=== PATIENT | female | born 1980 | race Caucasian/White ===

== ENCOUNTER 2019-05-09 14:45 | Emergency (ER) | payer OTHER ==
[2019-05-09 15:01] VITALS: BP 140/87; PULSE 102; TEMP 99; BMI 25.6
[2019-05-09] MEDS ORDERED: KETOROLAC TROMETHAMINE 30 MG/1 ML VIAL IM ONE (15:34)
[2019-05-09] MEDS ORDERED: KETOROLAC TROMETHAMINE 30 MG/1 ML VIAL ONE (15:40)
--- NOTE | 2019-05-09 15:41 | PDOC ---
History of Present Illness - General Chief Complaint: Back Pain Stated Complaint: PAIN Time Seen by Provider: 05/09/19 15:20 History Source: Patient Exam Limitations: No Limitations - History of Present Illness Initial Comments: 05/09/19 15:44 CHIEF COMPLAINT: Lower back pain HISTORY OF PRESENT ILLNESS:38-year-old woman with past medical history of multiple herniated disc in the lumbar spine who presents emergency department for evaluation of acute exacerbation of her back pain. She reports the pain initiates in the lumbar spine and radiates bilaterally down both legs. She denies any numbness or tingling, incontinence of bladder or bowel, urinary retention, saddle anesthesia, foot drop. Patient denies any history of IV drug use or cancer. States pain is 10/10 and has a sharp, stabbing quality. REVIEW OF SYSTEMS: GENERAL: Afebrile, denies any weakness RESPIRATORY: No cough, wheezing, or hemoptysis. CARDIAC: No chest pain or shortness of breath MUSCULOSKELETAL: Pain to generalized lower back. No point tenderness. SKIN : No erythema, no bruising, no deformity. GI/: Denies any abdominal pain, no urinary difficulty, incontinence or urinary retention. RECTAL: Denies any difficulty this A.m. NEUROLOGICAL: Denies any numbness or tingling. No neurosensory deficits. PHYSICAL EXAM: GENERAL: The patient is awake, alert, and fully oriented, in no acute distress. RESPIRATORY: Lungs clear bilaterally, no rhonchi wheezes or crackles CARDIAC: S1-S2 audible, no murmur rub or gallop MUSCULOSKELETAL: Pain to generalized lower back, nonradiating, no tingling or sensory deficit. Less than 2 second cap refill, +2 pedal pulses. No spinal point tenderness. Normal reflexive and no deficits to sensation or strength. GI/: Abdomen soft, nontender, nondistended. No rebound tenderness. No masses palpable. RECTAL: Deferred patient with no neurological findings SKIN: Warm, Dry, normal turgor, no erythema, no edema no bruising. Past History - Past Medical History Allergies/Adverse Reactions: Allergies Allergy/AdvReac Type Severity Reaction Status Date / Time No Known Allergies Allergy Verified 05/09/19 15:01 Home Medications: Ambulatory Orders Lidocaine 5% Patch [Lidoderm Patch -] 1 patch TP DAILY #7 patch 05/09/19 traMADol HCL [Ultram -] 50 mg PO Q6H PRN #10 tablet MDD 4 05/09/19 COPD: No Other medical history: 4 buldging disc to lower back - Psycho Social/Smoking Cessation Hx Smoking History: Never smoked *Physical Exam - Vital Signs Last Vital Signs Temp Pulse Resp BP Pulse Ox 99.0 F 102 H 18 140/87 99 05/09/19 14:57 05/09/19 14:57 05/09/19 14:57 05/09/19 14:57 05/09/19 14:57 Medical Decision Making - Medical Decision Making 05/09/19 15:43 A/P: 38-year-old woman with acute exacerbation of chronic back pain No palpable muscle spasms present. Patient reports having multiple herniated disks on MRI and is currently awaiting insurance approval for further evaluation by spinal surgeon Toradol 30 mg IM now Discharge home with prescription for Lidoderm and tramadol. I discussed the physical exam findings, ancillary test results and final diagnoses with the patient. I answered all of the patient's questions. The patient was satisfied with the care received and felt comfortable with the discharge plan and treatment plan. The patient will call their primary care physician within 24 hours to arrange follow-up and will return to the Emergency Department with any new, persistent or worsening symptoms. Discharge - Discharge Information Problems reviewed: Yes Clinical Impression/Diagnosis: Acute exacerbation of chronic low back pain Condition: Stable Disposition: HOME - Admission No - Additional Discharge Information Prescriptions: Lidocaine 5% Patch [Lidoderm Patch -] 1 patch TP DAILY #7 patch traMADol HCL [Ultram -] 50 mg PO Q6H PRN #10 tablet MDD 4 PRN Reason: Back Pain - Follow up/Referral Referrals: Linwood Mena [Primary Care Provider] - - Patient Discharge Instructions Additional Instructions: Rest. Take Tylenol or Motrin as needed for pain. Follow manufacturers instructions for appropriate dosage. Tramadol 50 mg every 6 hours as needed if Tylenol and Motrin are not helping. Warm moist heat applied to your back may help alleviate pain. Schedule appointment with your spinal surgeon for continued evaluation and potential definitive treatment. Return to emergency department for discoloration of the foot, numbness or tingling to the foot, worsening pain, or any other concerns. Thank you very much for choosing us to provide your emergent healthcare needs. - Post Discharge Activity
== END 2019-05-09 16:08 | disposition home or self-care (01) ==
LOC: JERFT 14:45 → JER 14:45 → JERFT 16:08
PROC: 3E0233Z Introduction of Anti-inflammatory into Muscle, Percutaneous Approach (ICD-10-PCS; principal; 2019-05-09)
DX: M54.5 Low back pain (principal)
CPT/HCPCS: 96372; 99281-25

== ENCOUNTER 2020-11-24 20:20 | Emergency (ER) | payer OTHER ==
[2020-11-24 20:26] VITALS: BP 142/94; PULSE 95; TEMP 98; BMI 25.6
[2020-11-24] MEDS ORDERED: morphine CARPU-JECT 2 MG/1 ML DISP.SYRIN IVPUSH ONE (22:31)
[2020-11-24] MEDS ORDERED: ONDANSETRON 4 MG/2 ML VIAL IVPUSH ONE (22:42)
[2020-11-24] MEDS ORDERED: MORPHINE SULFATE 2 MG/ML VIAL ONE (22:42)
[2020-11-24] MEDS ORDERED: ONDANSETRON 4 MG/2 ML VIAL ONE (22:42)
[2020-11-24 22:50] LABS: BASO % 1.5 % (0-2.0); EOS % 2.5 % (0-4.5); HEMOGLOBIN 10.8 GM/dL (10.7-15.3); LYMPH % 43.5 % (8-40); MCH 28.9 pg (25.7-33.7); MCHC 33.7 g/dl (32.0-36.0); MEAN CELL VOLUME 85.7 fl (80-96); MEAN PLT VOLUME 8.6 fl (7.5-11.1); MONO % 9.2 % (3.8-10.2); NEUT % 43.3 % (42.8-82.8); PLATELET COUNT 309 10^3/uL (134-434); RBC 3.73 M/mm3 (3.60-5.2); RDW 13.4 % (11.6-15.6); WHITE BLOOD COUNT 7.2 K/mm3 (4.0-10.0)
[2020-11-24 22:55] LABS: EPI CELLS 16 /uL (0-25.1); HCG,QUALITATIVE URINE Negative; HYALINE CASTS 0 /uL (0-3.1); URINE APPEARANCE CLEAR; URINE BACTERIA 75 /uL (0-1359); URINE BILIRUBIN NEGATIVE (NEGATIVE); URINE COLOR YELLOW; URINE GLUCOSE (UA) NEGATIVE (NEGATIVE); URINE KETONE NEGATIVE (NEGATIVE); URINE LEUK ESTERASE TRACE (NEGATIVE); URINE NITRITE NEGATIVE (NEGATIVE); URINE PROTEIN NEGATIVE (NEGATIVE); URINE RBC 31 /uL (0-23.9); URINE UROBILINOGEN 0.2 mg/dL (0.2-1.0); URINE WBC 39 /uL (0-25.8)
[2020-11-24] MEDS ORDERED: SODIUM CHLORIDE 0.9% 500 ML INFUS.BAG IV ONE (23:17)
[2020-11-24] MEDS ORDERED: KETOROLAC TROMETHAMINE 15 MG/ML VIAL IM ONE (23:17)
[2020-11-24 23:18] LABS: CALCIUM 8.5 mg/dL (8.5-10.1)
[2020-11-24] MEDS ORDERED: KETOROLAC TROMETHAMINE 15 MG/ML VIAL ONE (23:18)
[2020-11-24 23:19] LABS: ALBUMIN 3.6 g/dl (3.4-5.0); BLOOD UREA NITROGEN 11.6 mg/dL (7-18)
[2020-11-24 23:22] LABS: CREATININE 0.9 mg/dL (0.55-1.3)
[2020-11-24 23:23] LABS: BILIRUBIN,TOTAL 0.1 mg/dL (0.2-1)
[2020-11-24 23:24] LABS: TOT PROT 7.5 g/dl (6.4-8.2)
== END 2020-11-25 02:03 | disposition home or self-care (01) ==
LOC: JER 20:20
PROC: 3E0233Z Introduction of Anti-inflammatory into Muscle, Percutaneous Approach (ICD-10-PCS; principal; 2020-11-24)
PROC: 3E033NZ Introduction of Analgesics, Hypnotics, Sedatives into Peripheral Vein, Percutaneous Approach (ICD-10-PCS; 2020-11-24)
PROC: 3E033GC Introduction of Other Therapeutic Substance into Peripheral Vein, Percutaneous Approach (ICD-10-PCS; 2020-11-24)
DX: N20.1 Calculus of ureter (principal)
CPT/HCPCS: 36415; 74176-TC; 80053; 81003; 84703; 85025; 87491; 87591; 99284-25

== ENCOUNTER 2022-01-18 21:18 | Emergency (ER) | payer OTHER ==
[2022-01-18 21:31] VITALS: BP 110/73; PULSE 84; RESP 18; TEMP 97.8; BMI 27.4
[2022-01-18] MEDS ORDERED: LIDOCAINE PATCH REMOVAL MC SCH (22:00)
[2022-01-18] MEDS ORDERED: LIDOCAINE 5% TOPICAL PATCH TP ONE (22:34)
[2022-01-18] MEDS ORDERED: KETOROLAC TROMETHAMINE 30 MG/1 ML VIAL IM ONE (22:34)
[2022-01-18] MEDS ORDERED: METHOCARBAMOL 500 MG TABLET PO ONE (22:34)
[2022-01-18] MEDS ORDERED: oxyCODONE HCL 5 MG TABLET PO ONE (22:37)
[2022-01-18 22:52] LABS: EPI CELLS 23 /uL (0-25.1); HYALINE CASTS 0 /uL (0-3.1); PH,URINE 6.5 (5.0-8.0); URINE APPEARANCE CLEAR; URINE BACTERIA 775 /uL (0-1359); URINE BILIRUBIN NEGATIVE (NEGATIVE); URINE COLOR YELLOW; URINE GLUCOSE (UA) NEGATIVE (NEGATIVE); URINE KETONE NEGATIVE (NEGATIVE); URINE LEUK ESTERASE NEGATIVE (NEGATIVE); URINE NITRITE NEGATIVE (NEGATIVE); URINE PROTEIN NEGATIVE (NEGATIVE); URINE RBC 54 /uL (0-23.9); URINE UROBILINOGEN 0.2 mg/dL (0.2-1.0); URINE WBC 2 /uL (0-25.8)
[2022-01-18] MEDS ORDERED: METHOCARBAMOL 500 MG TABLET ONE (22:59)
[2022-01-18] MEDS ORDERED: oxyCODONE HCL 5 MG TABLET ONE (23:00)
[2022-01-18] MEDS ORDERED: KETOROLAC TROMETHAMINE 30 MG/1 ML VIAL ONE (23:00)
[2022-01-18] MEDS ORDERED: LIDOCAINE 5% TOPICAL PATCH ONE (23:00)
[2022-01-18] MEDS ORDERED: CEPHALEXIN MONOHYDRATE 500 MG CAPSULE (UD) PO ONE (23:01)
[2022-01-18 23:14] LABS: HCG,QUALITATIVE URINE Negative
[2022-01-18] MEDS ORDERED: CEPHALEXIN MONOHYDRATE 500 MG CAPSULE (UD) ONE (23:17)
== END 2022-01-19 01:03 | disposition home or self-care (01) ==
LOC: JER 21:18
PROC: 3E0233Z Introduction of Anti-inflammatory into Muscle, Percutaneous Approach (ICD-10-PCS; principal; 2022-01-18)
DX: M54.50 Low back pain, unspecified (principal)
CPT/HCPCS: 72131-TC; 81003; 84703; 87086; 99284-25

== ENCOUNTER 2022-05-23 13:28 | Emergency (ER) | payer OTHER ==
[2022-05-23 13:49] VITALS: BP 131/82; PULSE 75; RESP 20; TEMP 97.8; BMI 25.7
[2022-05-23] MEDS ORDERED: KETOROLAC TROMETHAMINE 30 MG/1 ML VIAL IM ONE (14:26)
[2022-05-23] MEDS ORDERED: KETOROLAC TROMETHAMINE 30 MG/1 ML VIAL ONE (14:30)
== END 2022-05-23 15:04 | disposition home or self-care (01) ==
LOC: JERFT 13:28 → JER 13:28 → JERFT 15:04
PROC: 3E023GC Introduction of Other Therapeutic Substance into Muscle, Percutaneous Approach (ICD-10-PCS; principal; 2022-05-23)
DX: L29.9 Pruritus, unspecified (principal)
CPT/HCPCS: 99284-25

== ENCOUNTER 2024-01-29 13:31 | Emergency (ER) | payer OTHER ==
[2024-01-29 13:48] VITALS: BP 111/77; PULSE 111; RESP 20; TEMP 102.6; BMI 24.3
[2024-01-29] MEDS ORDERED: ACETAMINOPHEN 500 MG TABLET (FP) ONE (14:11)
[2024-01-29] MEDS: ACETAMINOPHEN 500 MG TABLET (FP) PO ONE (14:18)
== END 2024-01-29 14:29 | disposition home or self-care (01) ==
LOC: JERFT 13:31
DX: R50.9 Fever, unspecified (principal); R05.9 Cough, unspecified; R09.81 Nasal congestion; J06.9 Acute upper respiratory infection, unspecified; Z20.822 Contact with and (suspected) exposure to COVID-19
CPT/HCPCS: 0241U-QW; 99283-25